=== PATIENT | male | born 1995 | race Caucasian/White ===

== ENCOUNTER 2025-07-24 09:09 | Emergency (ER) | payer SELFPAY ==
[~2025-07-24] VITALS: Ht 167.6 cm; Wt 60.0 kg
[2025-07-24 09:30] VITALS: O2SAT 98
[2025-07-24] MEDS: VISCOUS LIDOCAINE 2% 15 ML UDC MM STA (10:45)
[2025-07-24] MEDS ORDERED: IBUP-2437 MT (11:13)
[2025-07-24 11:24] VITALS: BP 120/66; PULSE 70; RESP 15; TEMP 36.8; O2SAT 98
== END 2025-07-24 11:25 | disposition home or self-care (01) ==
LOC: ER 09:09
DX: S10.12XA Blister (nonthermal) of throat, initial encounter (principal); X58.XXXA Exposure to other specified factors, initial encounter; Y93.89 Activity, other specified; Y92.89 Other specified places as the place of occurrence of the external cause; Y99.8 Other external cause status
CPT/HCPCS: 99283